=== PATIENT | female | born 1960 | race Caucasian/White ===

== ENCOUNTER → 2017-08-22 19:38 | Outpatient (CLI) | payer BC | END | disposition home or self-care (01) | LOC: D.MAMMO 14:30 | DX: Z12.31 Encounter for screening mammogram for malignant neoplasm of breast (principal) ==

== ENCOUNTER → 2020-09-29 07:54 | Outpatient (CLI) | payer BC ==
--- NOTE | 2020-10-01 15:38 | ST ---
PATIENT:MAGY VALERIO MEDICAL RECORD: [id number] SEX: F LOCATION:[facility] ORDER #: ADMISSION DATE: 09/29/20 AGE OF PATIENT: 60 REFERRING PHYSICIAN: INTERPRETING PHYSICIAN: GREYSON LIRIANO MD DATE OF SERVICE: 09/29/2020 NUCLEAR STRESS TEST GATED: Gated is normal with normal wall motion, normal EF, calculated EF 69%. SPECT IMAGING: SPECT imaging was performed. Short axis view shows a reversible defect along the inferior base. This is confirmed in the horizontal axis with a reversible defect along the inferior base. Vertical axis shows good uptake along the lateral wall and septum. FINAL IMPRESSION: 1. Normal gated, normal wall motion, normal EF of 69%. 2. Abnormal SPECT imaging with reversible defect along the inferior base seen in 2 views. This patient with no known history of coronary artery disease. This scan is concerning for a new onset of coronary artery disease with ongoing symptomatology. Consider angiography as part of this workup. TRANSINT:[id number] Voice Confirmation ID: [id number] DOCUMENT ID: [id number] GREYSON LIRIANO MD at 1538 CC: [id number] DICTATION DATE: 09/30/20 0852 INSULATION BOARD CALENDER OPERATOR: 10/01/20 0715 DEP CLI 09/29/20 [id number] [place] [address]
== END | disposition home or self-care (01) ==
LOC: D.HCCARDIO 07:54
PROVIDERS: ATTEND Internal Medicine Interventional Cardiology
DX: I20.9 Angina pectoris, unspecified (principal)

== ENCOUNTER 2020-10-07 11:51 | Day surgery (SDC) | payer BC ==
[~2020-10-07] VITALS: Ht 172.7 cm; Wt 84.6 kg
--- NOTE | ~2020-10-07 | HEMODYNAMI ---
PATIENT:MAGY VALERIO MEDICAL RECORD: [id number] : 60 LOCATION:[facility] ADMISSION DATE: 10/07/20 Generatedon:114:22 Patient name: MAGY VALERIO Patient #: [id number] SSN: [id number] : 1960 Date of study: 10/07/2020 Page: Of Hemodynamic Procedure Report Patient Data Patient Demographics Procedure consent was obtained First Name: MAGY Gender: Female Last Name: TEODORO : 1960 Middle Initial: LALITA Age: 60 year(s) Patient #: [id number] Race: SSN: [id number] Additional ID: [id number] Contact details Address: [address] [place] [address] State: [place] City: [place] Zip code: [address] Admission Admission Data Admission Date: 10/07/2020 Admission Time: 11:51 Procedure Procedure Types Cath Procedure Diagnostic Procedure LHC LH w/Coronaries Sedation Charges Moderate Sedation 10-24 minutes Procedure Description Procedure Date Procedure Date: 10/07/2020 Procedure Start Time: 13:59 Procedure End Time: 14:19 Procedure Staff Name Function Joo Jose MD Performing Physician Sumi Martinez RT Monitor Ranjana Ching RT Scrub Luke Ying RN Nurse Procedure Data Cath Procedure Fluoroscopy Diagnostic fluoroscopy Total fluoroscopy Time: 2.3 time: 2.3 min min Diagnostic fluoroscopy Total fluoroscopy dose: 423 dose: 423 mGy mGy Contrast Material Contrast Material Type Amount (ml) Isovue 300 75 Entry Location Entry Primary Successful Side Size Upsize Upsize Entry Closure Succes sful Closure Location (Fr) 1 (Fr) 2 (Fr) Remarks Device Remarks Femoral Right 5 Fr Exoseal artery Estimated blood loss: 5 ml Procedure Complications No complications Procedure Medications Medication Administration Route Dosage 0.9% NaCl I.V. 100 ml/hr Oxygen etCO2 Nasal cannula 2 l/min Heparin Flush Bag added to field 2 bags (1000units/500ml NS) Lidocaine 2% added to field 20 Radial Cocktail added to field 1 syringe (Verapamil 2mg/Nitro 400mcg/Heparin 1500units) Versed I.V. 2 mg Fentanyl I.V. 100 mcg Versed I.V. 1 mg Hemodynamics Rest Heart Rate: 59 (bpm) Pressure Samples Time Site Value (mmHg) Purpose Heart Use Rate(bpm) 14:14 LV 132/4,17 Snapshot 63 14:15 AO 132/64(94) Pullback 62 14:15 LV 122/-6,14 Pullback 62 Gradients Valve Time Site 1 Site 2 Mean SEP/DFP Peak To Heart Use (mmHg) (sec/min) Peak Rate (mmHg) (bpm) Aortic 14:15 LV AO 0 5 0 62 122/-6,14 132/64(94) Calculations Valve P-P Mean Valve Index Valve Source Name Gradient Area Flow (cm2) Aortic 0 0 0 0 Snapshots Pre Cath Intra NCS Post Cath Vital Signs Time Heart Resp SPO2 etCO2 NIBP (mmHg) Rhythm Pain Sedation Rate (ipm) (%) (mmHg) Status Level (bpm) 13:51:32 65 22 100 30.8 143/83(108) NSR 0 (11) 10(A) , No pain 13:55:46 58 17 98 21.7 121/81(98) NSR 0 (11) 10(A) , No pain 13:59:56 54 11 96 19.5 124/69(89) NSR 0 (11) 10(A) , No pain 14:04:06 53 12 99 37.6 115/69(80) NSR 0 (11) 10(A) , No pain 14:08:14 57 12 99 36 116/64(88) NSR 0 (11) 9(A) , No pain 14:12:19 62 13 98 36.8 132/73(102) NSR 0 (11) 9(A) , No pain 14:16:31 61 15 99 36.8 123/70(92) NSR 0 (11) 10(A) , No pain Medications Time Medication Route Dose Verified Delivered Reason Notes E ffectiveness by by 13:48:28 0.9% NaCl I.V. 100 Luke Luke Per ml/hr Deonna Ying physician RN RN 13:48:40 Oxygen etCO2 2 l/min Luke Luke for low 02 Nasal Lorigan Lorigan sats cannula RN RN 13:48:53 Heparin Flush added 2 bags Luke Luke used for Bag to Lorigan Lorigan procedure (1000units/500ml field RN RN NS) 13:49:02 Lidocaine 2% added 20ml Luke Luke for local to vial Lorigan Lorigan anesthetic field RN RN 13:49:16 Radial Cocktail added 1 Luke Luke used for (Verapamil to syringe Lorigan Lorigan procedure 2mg/Nitro field RN RN 400mcg/Heparin 1500units) 13:57:21 Versed I.V. 2 mg Luke Luke for Lorigan Lorigan sedation RN RN 13:57:31 Fentanyl I.V. 100 mcg Luke Luke for Lorigan Lorigan sedation RN RN 14:05:33 Versed I.V. 1 mg Luke Luke for Lorigan Lorigan sedation RN certified professional controller Log Time Note 13:34:37 Luke Ying RN sent for patient. Start room use. 13:43:37 Informed consent obtained and on chart 13:43:48 Procedure Status Elective Heart Cath (OP). 13:43:54 Diagnostic Cath Status : Elective 13:44:43 Time tracking: Regular hours (M-F 7:00 - 5:00) 13:44:47 Plan of Care:Hemodynamics will remain stable., Cardiac rhythm will remain stable., Comfort level will be maintained., Respiratory function will remain adequate., Patient/ family verbilizes understanding of procedure., Procedure tolerated without complication., Recovers from procedure without complications.. 13:44:52 Patient received from Pre/Post Procedure Room to [facility] 2 Alert and oriented. Tansferred to table in Supine position. 13:44:53 Warm blankets applied, and john hugger turned on for patient comfort. 13:44:54 Correct patient and procedure confirmed by team. 13:44:54 ECG and BP/O2 sat monitors applied to patient. 13:46:57 Vital chart was started 13:47:10 Full Disclosure recording started 13:47:14 H&P Date Dictated: 10/07/2020 Within 30 days and on chart., H&P Addendum completed by physician on day of procedure. (MUST COMPLETE FOR ALL OUTPATIENTS). 13:47:16 Pre-procedure instructions explained to patient. 13:47:16 Pre-op teaching completed and patient verbalized understanding. 13:47:18 Family unavailable. 13:47:19 Patient NPO since Midnight. 13:47:20 Is the patient allergic to Iodine/contrast media? No. 13:48:28 0.9% NaCl 100 ml/hr I.V. was administered by Luke Ying RN; Per physician; Verbal order read back and verified. 13:48:40 Oxygen 2 l/min etCO2 Nasal cannula was administered by Luke Ying RN; for low 02 sats; Verbal order read back and verified. 13:48:53 Heparin Flush Bag (1000units/500ml NS) 2 bags added to field was administered by Luke Ying RN; used for procedure; Verbal order read back and verified. 13:49:02 Lidocaine 2% 20ml vial added to field was administered by Luke Ying RN; for local anesthetic; Verbal order read back and verified. 13:49:16 Radial Cocktail (Verapamil 2mg/Nitro 400mcg/Heparin 1500units) 1 syringe added to field was administered by Luke Ying RN; used for procedure; Verbal order read back and verified. 13:49:35 Was the patient premedicated? Yes 13:49:46 Is patient on blood thinner?No 13:49:48 Patient diabetic? No. 13:49:50 Previous problem with sedation/anesthesia? No ? 13:49:52 Snore? No 13:49:53 Sleep apnea? No 13:49:54 Deviated septum? No 13:49:55 Opens mouth fully? Yes 13:49:56 Sticks out tongue? Yes 13:49:58 Airway obstruction? No ? 13:50:01 Dentures? No ? 13:50:04 Pre procedure: right dorsailis pedis pulse 2+ Normal; easily identifiable; not easily obliterated 13:50:06 Pre procedure: left dorsailis pedis pulse 2+ Normal; easily identifiable; not easily obliterated 13:50:09 Patient pain scale 0/10 ?. 13:50:16 IV patent on arrival in left forearm with 0.9% NaCl at [facility]. 13:50:19 Lab results completed and on chart. 13:50:45 Stress Test: yes; abnormal inferior 13:50:50 Right Radial & Right Groin area was prepped with chlora-prep and draped in sterile fashion 13:50:51 Alarms reviewed by R. N. 13:50:51 Sharps counted by scrub and verified by R.N. 13:50:53 Physician arrived 13:50:53 --------ALL STOP TIME OUT------ 13:50:54 Final Timeout: patient, procedure, and site verified with staff and physician. All members of the team are in agreement. 13:50:55 Right groin site verified by team. 13:50:59 Fire Safety Assessment: A--An alcohol-based skin anteseptic being used preoperatively., C--Open oxygen or nitrous oxide is being used., D--An ESU, laser, or fiber-optic light is being used. 13:51:04 Physical assessment completed. ASA score P 2 - A patient with mild systemic disease as per Joo Jose MD. 13:51:11 2) 60-89 Mildly reduced kidney function, and other findings (as for stage 1) point to kidney disease. 13:53:12 Maximum allowable contrast dose (3.7 X eGFR X 0.75)188 ml. 13:53:16 Sedation plan: IV Moderate Sedation Medication:Versed, Fentanyl 13:53:21 Use device set Radial Dx or PCI 13:53:22 ACIST Syringe (81179) opened to sterile field. 13:53:22 Medline Cath Pack ([id number]) opened to sterile field. 13:53:23 Bag Decanter () opened to sterile field. 13:53:23 ACIST Hand Control (23508) opened to sterile field. 13:53:23 ACIST Manifold (43227) opened to sterile field. 13:53:24 Tegaderm 4 x 4 (1626W) opened to sterile field. 13:53:24 MBrace Wrist Support ([id number]) opened to sterile field. 13:53:26 SHEATH 6FR RAIN (2072877) opened to sterile field. 13:53:27 EMERALD Guide Wire (594-036) opened to sterile field. 13:55:54 Zero performed for pressure channel P1 13:56:16 Baseline sample Acquired. 13:56:23 Rhythm: sinus rhythm 13:57:21 Versed 2 mg I.V. was administered by Luke Ying RN; for sedation; Verbal order read back and verified. 13:57:31 Fentanyl 100 mcg I.V. was administered by Luke Ying RN; for sedation; Verbal order read back and verified. 13:59:42 Procedure started. 13:59:45 Local anesthetic to right radial artery with Lidocaine 2% by Joo Jose MD.INITIAL ACCESS ONLY 14:05:33 Versed 1 mg I.V. was administered by Luke Ying RN; for sedation; Verbal order read back and verified. 14:06:41 unable to gain radial access 14:06:44 Local anesthetic to right femoral artery with Lidocaine 2% by Joo Jose MD.ADDITIONAL ACCESS 14:06:56 SHEATH 5FR [place] (RYN824) opened to sterile field. 14:06:57 DIAGNOSTIC Multipack 5Fr catheter set ([id number]) opened to sterile field. 14:07:24 A 5 Fr sheath was inserted into the Right Femoral artery 14:08:26 5 Fr jl 4 guide catheter was inserted over the wire 14:09:37 LCA angiography performed. 14:09:40 Injector settings: Ml/sec: 3, Volume: 6, 14:10:05 Catheter removed. 14:11:15 5 Fr 3drc guide catheter was inserted over the wire 14:12:53 RCA angiography performed. 14:12:56 Injector settings: Ml/sec: 3, Volume: +6, 14:13:02 Catheter removed. 14:13:14 5 Fr pigtail guide catheter was inserted over the wire 14:14:41 LV gram done using SUTTON 14:14:43 Injector settings: Ml/sec: 5, Volume: 15, 14:14:46 LV hemodynamics recorded. 14:14:54 EF : 60 % 14:15:30 Catheter removed. 14:15:50 EXOSEAL 5Fr (EX500) opened to sterile field. 14:17:45 Sheath removed intact; hemostasis achieved with Exoseal to the Right Femoral artery. 14:17:48 Procedure ended.(Physican Out) 14:18:08 Fluoroscopy time 02.30 minutes. 14:18:12 Fluoroscopy dose: 423 mGy 14:18:12 Flurop Dose total: 423 14:18:16 Dose Area Product 87106 mGy/cm. 14:18:29 Contrast amount:Isovue 300 75ml. 14:18:30 Maximum allowable dose exceeded? No. 14:18:31 Sharps counted by scrub and verified by R.N. 14:18:32 Insertion/operative site no bleeding no hematoma. 14:18:35 Post-op/insertion site Right Femoral artery dressed using a 4 x 4 and Tegaderm. 14:18:36 Post Procedure Pulses reassessed and unchanged 14:18:39 Post procedure rhythm: unchanged. 14:18:41 Estimated blood loss: 5 ml 14:18:43 Post procedure instruction explained to patient.Patient verbalizes understanding. 14:18:44 Patient needs reinforcement of post procedure teaching. 14:19:19 Procedure type changed to Cath procedure, Diagnostic procedure, LHC, [facility] w/Coronaries, Sedation Charges, Moderate Sedation 10-24 minutes 14:19:33 Procedure and supply charges have been captured, reviewed, submitted and are correct. 14:19:40 Procedure Complication : No complications 14:19:42 Vital chart was stopped 14:19:44 [facility] Findings: mild to moderate CAD (<70%) 14:19:45 Operative report dictated upon procedure completion. 14:19:46 See physician's report for complete and final results. 14:19:49 Report given to Pre/Post Procedure Room. 14:19:53 Patient transfered to Pre/Post Procedure Room with Stretcher. 14:19:55 Procedure ended. 14:19:55 Full Disclosure recording stopped 14:20:01 End room use (Document Last) 14:20:44 End room use (Document Last) 14:21:06 End room use (Document Last) Device Usage Item Name Manufacture Quantity Catalog Hospital Part Current Minima l Lot# / Number Charge Number Stock Stock Serial# Code ACIST Acist 1 29841 852009 618187 602159 20 Syringe Medical (62513) Systems Inc Medline Medline 1 [id number] 66540 189123 5 Cath Pack ([id number]) Bag Microtek 1 2001S 611051 18017 293539 5 Decanter Medical Inc. () ACIST Hand Acist 1 55240 953395 102557 814453 5 Control Medical (08671) Systems Inc ACIST Acist 1 17510 791967 274415 836032 5 Manifold Medical (01862) Systems Inc Tegaderm 4 3M 1 1626W 323704 075753 175320 5 x 4 (1626W) MBrace Advanced 1 140-0250-00 038757 94858 973361 5 Wrist Vascular Support Dynamics ([id number]) SHEATH 6FR Cardinal 1 6163784 043828 5148987 580008 5 [facility] Health (8445634) EMERALD Cardinal 1 502-455 379444 642279 051591 5 Guide Wire Health (502455) SHEATH 5FR Terumo 1 XTB114 804047 053801 681139 5 [place] (NUD503) DIAGNOSTIC Cardinal 1 GI6788 959808 96267 498880 30 Multipack Health 5Fr catheter set (LL5783) EXOSEAL 5Fr Cardinal 1 EX500 964056 147809 183208 10 (EX500) Health Signature Audit [place] Stage Time Signature Unsigned Intra-Procedure 10/07/2020 Sumi Martinez 2:20:44 PM RT(R) Intra-Procedure 10/07/2020 Luke 2:21:06 PM Deonna RN Intra-Procedure 10/07/2020 Joo Jose MD 2:22:01 PM Signatures Performing Physician : Signature : Joo Jose MD Date : Time : Monitor : Sumi Martinez RT Signature : Date : Time : Nurse : Luke Ying Signature : RN Date : Time : [facility] [address] [place] [address]
[2020-10-07] MEDS ORDERED: CARTIA XT120 MG PO (12:32)
[2020-10-07] MEDS ORDERED: MACROBID100 MG PO (12:33)
[2020-10-07] MEDS ORDERED: NITROSTAT0.4 MG SL (12:34)
[2020-10-07 12:50] VITALS: BP 152/78; Ht 172.7 cm; Wt 84.6 kg
[2020-10-07 13:02] LABS: BASOPHILS 0.1 % (0-2); EOSINOPHILS 0.5 % (0-7); HEMATOCRIT 39.2 % (36.0-48.0); HEMOGLOBIN 13.1 g/dL (12-16); IMMATURE GRANULOCYTES 0.2 % (0-5); LYMPHOCYTE ABS# 2.59 10x3/uL (1.18-3.74); LYMPHOCYTES 27.1 % (15-50); MCH 28.3 pg (26.0-34.0); MCHC 33.4 g/dL (31.0-37.0); MCV 84.7 fL (80.0-100.0); MEAN PLATELET VOLUME 9.6 fL (7.4-10.4); NEUTROPHILS 65.1 % (40-80); PLATELET COUNT 382 10x3/uL (130-400); RBC 4.63 10x6/uL (4.00-5.40); RDW 14.9 % (11.5-14.5); WBC 9.5 10x3/uL (4.8-10.8)
[2020-10-07 13:25] LABS: ANION GAP 11.5 mmol/L (8-16); CALCIUM 9.1 mg/dL (8.5-10.1); CARBON DIOXIDE 27.2 mmol/L (21.0-32.0); CHOL - HDL RATIO 4.1 ratio (2.3-4.1); CREATININE - SERUM 0.9 mg/dL (0.6-1.3); LDL-HDL RATIO 2.6 ratio (1.5-3.5); POTASSIUM - SERUM 3.7 mmol/L (3.5-5.1)
--- NOTE | 2020-10-07 14:30 | NUR ---
ARRIVES TO ROOM 3 S/P HEART CATH, EYES CLOSED AROUSES EASILY, PLACED ON MONITORS AND ALARMS ON, SEE BLOOMING MILL SUPERVISOR, IV INFUSING PER ORDERS,VSS, SB/SR NO ECTOPY, DENIES PAIN OR NEEDS, UP DATE GIVEN ON PLAN OF CARE TO PT AND SPOUSE , PT INSTRUCTED TO LAY FLAT WITH HEAD ON PILLOW, CALL LIGHT WITHIN REACH.
--- NOTE | 2020-10-07 15:00 | NUR ---
DR MOREJON AT BEDSIDE TO SPEAK WITH PT AND SPOUSE
--- NOTE | 2020-10-07 15:15 | NUR ---
RESTING QUIELTY , AROUSES EASILY, PT PLACED IN SEMI FOWLERS POSITION, VSS, SR ON MONITOR , RIGHT GROIN SOFT WITH NO OOZING OR BLEEDING NOTED, NO PALPABLE HEMATOMA, EXTREMITY PINK AND WARM , PEDAL PULSE PALPABLE, IV INFUSING PER ORDERS, PT DENIES PAIN OR NEEDS, PO FLUIDS GIVEN, NO BATHROOM NEEDS, CALL LIGHT WITHIN REACH
--- NOTE | 2020-10-07 15:30 | NUR ---
PT RESTING QUIETLY WITH NO NEEDS, SPOUSE AT BEDSIDE, VSS, SR, RIGHT GROIN STABLE WITH NO OOZING OR BLEEDING NOTED, NO PALPABLE HEMATOMA, PEDAL PULSE PALPABLE, IV INFUSING PER ORDERS, DENIES PAIN OR NEEDS AT PRESENT, CALL LIGHT WITH IN REACH, NO BATHROOM NEEDS
--- NOTE | 2020-10-07 16:00 | NUR ---
PT AAOX3, VSS, SR, SANDWICH AND PO FLUIDS GIVEN, RIGHT GROIN SOFT WITH NO BLEEDING OR OOZING , NO PALPALBE HEMATOMA, PEDAL PULSE PALPABLE, CAP REFILL WNL, DENIES PAIN OR NEEDS , IV INFUSING PER ORDERS, NO BATHROOM NEEDS, SPOUSE AT BEDSIDE, CALL LIGHT WITHIN REACH.
--- NOTE | 2020-10-07 16:30 | NUR ---
PT ASSISTED UP TO BATHROOM AND DRESSING, VOIDED WITH OUT PROBLEMS, , VSS, SR, RIGHT GROIN STABLE WITH NO OOZING OR BLEEDING, NO PALPABLE HEMATOMA, PEDAL PULSE PALPABLE, CAP REFILL WNL, DENIES PAIN OR NEEDS, DISCHARGE INSTRUCTIONS REVIEWED PT AND SPOUSE VERBALIZED UNDERSTANDING, QUESTIONS AND CONCERNS ADDRESSED,
--- NOTE | 2020-10-07 16:40 | NUR ---
TAKEN TO PRIVATE VEHICLE VIA WHEELCHAIR AND TO CARE OF SPOUSE NO NEEDS AT THIS TIME
== END 2020-10-07 16:40 | disposition home or self-care (01) ==
LOC: D.CATH 11:51
PROVIDERS: ATTEND Internal Medicine Cardiovascular Disease
DX: I20.0 Unstable angina (principal); I11.9 Hypertensive heart disease without heart failure

== ENCOUNTER → 2020-11-09 07:41 | Outpatient (CLI) | payer BC ==
[2020-10-07 12:50] VITALS: BMI 28.3
[~2020-11-09 07:41] MED LIST: CARTIA XT120 MG PO; MACROBID100 MG PO; NITROSTAT0.4 MG SL
== END | disposition home or self-care (01) ==
LOC: D.NM 07:41
PROVIDERS: ATTEND Family Medicine
DX: R07.9 Chest pain, unspecified (principal)

== ENCOUNTER 2020-12-30 11:00 | Outpatient (CLI) | payer BC ==
[2020-10-07 12:50] VITALS: BMI 28.3
== END 2020-12-30 11:30 | disposition home or self-care (01) ==
LOC: D.MAMMO 11:00
PROVIDERS: ATTEND Family Medicine
DX: Z12.31 Encounter for screening mammogram for malignant neoplasm of breast (principal)